=== PATIENT | female | born 1990 | race Two or more races ===

== ENCOUNTER 2020-12-02 20:48 | Emergency (ER) | payer MEDICAID, OTHER ==
[~2020-12-02] VITALS: Ht 157.5 cm; Wt 90.7 kg
[2020-12-02 20:51] VITALS: BP 144/89
== END 2020-12-03 01:27 | disposition home or self-care (01) ==
LOC: ER 21:01
DX: G51.0 Bell's palsy (principal); Z32.02 Encounter for pregnancy test, result negative
CPT/HCPCS: 70450; 81025